=== PATIENT | male | born 2000 | race Two or more races ===

== ENCOUNTER 2020-02-06 15:08 | Emergency (ER) | payer MEDICAID ==
[~2020-02-06] VITALS: Ht 172.7 cm; Wt 113.4 kg
--- NOTE | 2020-02-06 15:15 | NUR ---
ED Nurse Note: Patient JUNE from home c/o 01/06, non-radiating right shoulder pain and numbness x 1 week. Patient states he "feels scared he will stop breathing and wanted to get checked". 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 No s/s of acute distress, denies shortness of breath.
--- NOTE | 2020-02-06 15:17 | Emergency Room Report ---
History of Present Illness General Chief Complaint: Pain Source: Patient Present Illness HPI Disclaimer: Please note that this report is being documented using DRAGON technology. This can lead to erroneous entry secondary to incorrect interpretation by the dictating instrument. HPI: 19-year-old male presents with right arm pain. He states it has been present for the past week also feeling of something stuck in his throat and feeling mildly anxious. Intermittent numbness in the right arm. Denies any injury. No other complaints at this time. 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 Patient History Reviewed Nursing Documentation: PMH: Agreed; PSxH: Agreed Nursing Documentation-PMH Past Medical History: No Stated History Review of Systems All Other Systems: negative except mentioned in HPI Physical Exam Vital Signs Date Time Temp Pulse Resp B/P (MAP) Pulse Ox O2 Delivery O2 Flow Rate FiO2 02/06/20 15:05 97.7 110 16 164/74 (104) 99 Room Air Sp02 EP Interpretation: reviewed, normal General Appearance: well appearing, no apparent distress Head: normocephalic, atraumatic Eyes: bilateral eye PERRL, bilateral eye EOMI ENT: hearing grossly normal, moist mucus membranes Neck: full range of motion, supple Respiratory: lungs clear, normal breath sounds, no rhonchi, no respiratory distress, no retraction, no wheezing, other - Chest wall nontender to palpation Cardiovascular #1: normal peripheral pulses, regular rate, rhythm, no murmur Gastrointestinal: non tender, soft, non-distended, no guarding Musculoskeletal: other - Right arm normal inspection 2+ pulses no deformity nontender Neurologic: alert, oriented x3, no focal defects Psychiatric: anxious Skin: normal color, warm/dry Medical Decision Making Diagnostic Impression: Primary Impression: Right arm pain ER Course MDM: Differential included but not limited to anxiety, muscle strain, costochondritis, acid reflux, less likely pneumonia ACS PE or other emergent pathology Clinical course-Patient's vital signs were stable. He was in no acute distress. EKG had no ischemic changes. Exam was normal. Chest x-ray showed no acute pathology. Suspect most likely anxiety versus musculoskeletal etiology. Will prescribe analgesics and have patient follow-up with PMD. Given return precautions. Regarding patient's hypertension I did recommend follow-up with his PCP for recheck. EKG Diagnostic Results Rate: normal Rhythm: NSR, other - Arrhythmia ST Segments: no acute changes Rhythm Strip Diag. Results EP Interpretation: yes Rate: 71 Rhythm: NSR, no PVC's Chest X-Ray Diagnostic Results Chest X-Ray Diagnostic Results : Chest X-Ray Ordered: Yes # of Views/Limited/Complete: 1 View Indication: Shortness of Breath EP Interpretation: Yes Interpretation: no consolidation, no effusion, no pneumothorax, no acute cardiopulmonary disease Impression: No acute disease Electronically Signed by: Nestor Estrada MD Last Vital Signs Date Time Temp Pulse Resp B/P (MAP) Pulse Ox O2 Delivery O2 Flow Rate FiO2 02/06/20 15:05 97.7 110 16 164/74 (104) 99 Room Air Disposition: HOME, SELF-CARE Condition: Stable Scripts Ibuprofen* (MOTRIN*) 600 Mg Tablet 600 MG ORAL Q6H PRN for For Pain, #30 TAB 0 Refills Prov: Nestor Estrada M.D. 02/06/20 Nestor Estrada M.D. Feb 06, 2020 15:17
[2020-02-06 15:18] VITALS: BP 164/74
--- NOTE | 2020-02-06 15:21 | NUR ---
ED Nurse Note: Xray at bedside
--- NOTE | 2020-02-06 15:44 | Diagnostic Imaging Report ---
EXAM: XR Chest, 1 View CLINICAL HISTORY: CP TECHNIQUE: Frontal view of the chest. COMPARISON: No relevant prior studies available. FINDINGS: Lungs: Unremarkable. No consolidation. Pleural space: Unremarkable. No pneumothorax. Heart: Unremarkable. No cardiomegaly. Mediastinum: Unremarkable. Bones/joints: Unremarkable. IMPRESSION: No acute findings in the chest.
[2020-02-06] MEDS ORDERED: LORazepam 0.5mg tab ORAL ONE (15:45)
[2020-02-06 16:25] VITALS: BP 158/72
[2020-02-06] MEDS ORDERED: IBUPROFEN600 M1 ORAL (16:25)
--- NOTE | 2020-02-06 16:25 | NUR ---
ER DISCHARGE NOTE: Patient is cleared to be discharged per ERMD, pt is aox4, on room air, with stable vital signs. pt was given dc and prescription instructions, pt was able to verbalize understanding, pt id band removed. pt is able to ambulate with steady gait. pt took all belongings.
[2020-02-07] MEDS ORDERED: ONDANSETRON ODT4 MG BC (22:38)
[2020-02-07] MEDS ORDERED: SIMETHICONE180 MG PO (22:38)
== END 2020-02-06 16:25 | disposition home or self-care (01) ==
LOC: EDBD 15:08 → EMR 15:26
DX: M79.601 Pain in right arm (principal); R20.0 Anesthesia of skin; I49.9 Cardiac arrhythmia, unspecified
CPT/HCPCS: 71045; 93005; Z7502; 99283

== ENCOUNTER 2020-02-07 19:45 | Emergency (ER) | payer MEDICAID ==
[~2020-02-07] VITALS: Ht 175.3 cm; Wt 108.9 kg
[~2020-02-07 19:45] MED LIST: IBUPROFEN600 M1 ORAL
[2020-02-07 20:40] VITALS: BP 160/97
[2020-02-07 21:53] LABS: APPEARANCE,URINE CLEAR; BILIRUBIN, URINE NEGATIVE (NEGATIVE); COLOR,URINE PALE YELLOW; EOSINOPHILS % (AUTO) 1.3 % (0.0-3.0); GLUCOSE, URINE (UA) NEGATIVE (NEGATIVE); HEMATOCRIT 46.3 % (42.0-52.0); HEMOGLOBIN 15.2 G/DL (14.2-18.0); KETONES,URINE 3+ (NEGATIVE); LEUKOCYTE ESTERASE ,URINE NEGATIVE (NEGATIVE); LYMPHOCYTES % (AUTO) 29.3 % (20.0-45.0); MEAN CORPUSCULAR VOLUME 82 FL (80-99); MONOCYTES % (AUTO) 7.6 % (1.0-10.0); NEUTROPHILS % (AUTO) 60.9 % (45.0-75.0); NITRITE,URINE NEGATIVE (NEGATIVE); PH,URINE 6 (4.5-8.0); PLATELET COUNT 369 K/UL (150-450); PROTEIN,URINE NEGATIVE (NEGATIVE); RED BLOOD COUNT 5.66 M/UL (4.70-6.10); RED CELL DISTRIBUTION WIDTH 13.1 % (11.6-14.8); UROBILINOGEN,URINE NORMAL MG/DL (0.0-1.0); WHITE BLOOD COUNT 12.4 K/UL (4.8-10.8)
[2020-02-07 22:07] LABS: ANION GAP 14 mmol/L (5-15); BLOOD UREA NITROGEN 14 mg/dL (7-18); CALCIUM 9.5 MG/DL (8.5-10.1); CARBON DIOXIDE 21 MMOL/L (21-32); CHLORIDE 100 MMOL/L (98-107); CREATININE 1.3 MG/DL (0.55-1.30); POTASSIUM 3.7 MMOL/L (3.5-5.1); SODIUM 135 MMOL/L (136-145)
[2020-02-07 22:11] LABS: ALANINE AMINOTRANSFERASE 30 U/L (12-78); ALBUMIN 4.4 G/DL (3.4-5.0); ALKALINE PHOSPHATASE 95 U/L (46-116); ASPARTATE AMINO TRANSFERASE 19 U/L (15-37); BILIRUBIN,TOTAL 0.4 MG/DL (0.2-1.0)
[2020-02-07] MEDS ORDERED: SIMETHICONE180 MG PO (22:38)
[2020-02-07] MEDS ORDERED: ONDANSETRON ODT4 MG BC (22:38)
--- NOTE | 2020-02-07 22:38 | Emergency Room Report ---
History of Present Illness General Chief Complaint: Abdominal Pain Source: Patient Present Illness HPI 19-year-old has medical history of hypertension presents with multiple symptoms. First complaint is abd pain located diffusely across abdomen that began 7 days ago. Patient is unable to pinpoint 1 location but points along his periumbilical region. States that it is associated with nausea and nonbloody diarrhea. He was able to eat this morning but has less of an appetite than usual. Denies sick contacts, recent travel, or antibiotic use. He denies dysuria, hematuria, melena, hematochezia, penile discharge/pain, testicular/ scrotal pain. Patient also states that he has been having myalgias and sore throat. Denies cough or fever, hot potato voice, stridor, drooling, dysphonia. The patient's symptoms were gradual onset, severity was moderate, duration since 7-8 days. Past medical history: HTN Past surgical history: Denies Smoking: Denies Alcohol use: Denies Drug use: Denies Review of systems: CONST: No fevers or chills, No night sweats PULMONARY: No productive cough, No shortness of breath CARDIAC: No chest pain, No palpitations GI: No vomiting, No diarrhea , No melena_or_BRBPR : No dysuria, No hematuria, No discharge NEURO: No new_focal_weakness_or_numbness, No confusion, No vision changes 14 point Review of Systems is otherwise negative except per HPI Physical Exam: GENERAL: Awake_alert_ nontoxic, no acute distress Spo2 99% on RA -normal EYES: Extraocular muscles are intact. Conjunctivae clear. Lids without swelling ENT: External nose and ear normal_in_appearance. Oropharynx clear. Head_ atraumatic, Moist_oral_mucosa NECK: No JVD. No meningismus. No thyromegaly. Supple. Trachea midline No stridor, no drooling, no dysphonia. No trismus. RESP: Normal respiratory effort. Symmetric rise. No stridor. Clear_to_ auscultation_No_rales_No_wheezes CARDIAC: Regular rate and regular rhythm on_auscultation No_significant pedal edema. ABDOMEN: Soft. Nondistended. Nontender_No_rebound_or_guarding. Negative Rovsing sign. Negative obturator sign. Negative Crane sign MSK: Normal muscle tone, without rigidity. Extremities without asymmetric deformity or swelling. SKIN: Warm and dry. No visible cyanosis or pallor NEUROLOGIC: Alert, oriented x3. Motor_and_sensation_grossly_intact. No truncal ataxia. Gait_normal Psych: Normal mood and affect, normal judgment and insight - COORDINATION OF CARE Case was discussed with: Patient Any labs and imaging that were ordered were interpreted as part of the medical decision making: Medical Decision Making/Plan: Differential diagnosis includes cholecystitis, choledocholithiasis, hepatitis, small bowel obstruction,pancreatitis, atypical appendicitis, gastroparesis, gastritis, peptic ulcer disease, among others. Patient is well appearing with stable vital signs. Abdominal exam is non peritoneal with no guarding or rebound. No signs of deep space neck infection. Labs show non specific leukocytosis.UA shows + ketone without uti. Over the course of their emergency department stay, serial abdominal exams were performed and reassuring without any peritoneal signs. The patients symptoms significantly improved, exam upon discharge revealed a benign abdomen, and tolerating oral fluids. The patient appears stable for discharge to follow up with their primary medical doctor in 12-24hr, and understand to return to the ED immediately if symptoms change or worsen. Doubt appendicitis at this time given he is afebrile and able to tolerate PO. Symptoms can be explained by viral syndrome/enteritis. No acute indication for abx or admission at this time. Will DC with zofran and simethicone. Recommend increased hydration. Allergies: Coded Allergies: No Known Allergies (Unverified , 02/06/20) COVID-19 Screening Contact w/high risk pt: No Experienced COVID-19 symptoms?: No COVID-19 Testing performed SECURITY OPERATIONS SPECIALIST: No Nursing Documentation-PMH Hx Hypertension: Yes Physical Exam Vital Signs Date Time Temp Pulse Resp B/P (MAP) Pulse Ox O2 Delivery O2 Flow Rate FiO2 02/07/20 19:49 98.4 76 16 160/97 (118) 99 Room Air Sp02 EP Interpretation: reviewed, normal Medical Decision Making Diagnostic Impression: Primary Impression: Viral syndrome Additional Impressions: Abdominal pain Nausea Diarrhea Chest X-Ray Diagnostic Results Chest X-Ray Diagnostic Results : CARLO Salguero Chest X-Ray: Views: [ 1 ] view(s) Indication: sore throat Findings: Normal heart size. Mediastinum normal. No infiltrate. Impression: no Acute disease The X-ray(s) were independently viewed and interpreted contemporaneously Electronically signed by Mikaela mirza DO Reevaluation Time: 22:36 Last Vital Signs Date Time Temp Pulse Resp B/P (MAP) Pulse Ox O2 Delivery O2 Flow Rate FiO2 02/07/20 20:40 98.4 76 16 160/97 99 Room Air Status: improved Disposition: HOME, SELF-CARE Admit Decision Time: 22:36 Condition: Stable Scripts Simethicone (SIMETHICONE) 180 Mg Capsule 180 MG PO DAILY for bloating for 14 Days, #14 CAP Prov: Mikaela Richmond D.O. 02/07/20 Ondansetron Odt* (ZOFRAN ODT*) 4 Mg Tab.rapdis 4 MG BC EVERY 8 HOURS, #10 TAB 0 Refills Prov: Mikaela Richmond D.O. 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 Follow-up with your doctor sooner if your condition requires a more timely clinical reevaluation. Return to the emergency department immediately if you feel that your condition is worsening or if you have any new or concerning symptoms. Review your discharge instructions and take any prescriptions given as instructed. The evaluation of your abdominal pain today has not led to a clear diagnosis. Your physician still has concerns regarding your condition. Although dangerous conditions such as appendicitis do not appear likely at this time point, there is always some risk, especially if it is early (just beginning). Many conditions may not be discovered on initial testing. These should become more apparent with a reevaluation within 12-24 hours. The earlier these conditions are discovered and treated, the more effective the treatment can be. Therefore, you must come back to the ER and be reevaluated. Your signature below signifies your understanding of these concerns and your willingness to return within 12- 24 hours for a reevaluation. As always, if you feel your condition is getting worse at any time before 12-24 hours, please return immediately. You were seen in the emergency room for abdominal pain. Your exam suggested there was no evidence for an emergent condition at this time. Return to the ER for: fevers, worsening pain, bloody stool / diarrhea, vomiting , or any other concerning symptoms. Remember that examination and testing performed in the emergency department is not a comprehensive evaluation for all medical conditions and does not replace the need to follow up with a primary care doctor. In the emergency department, we are only able to to evaluate your symptoms in their current condition, but symptoms may change or worsen. Although you were felt safe to be discharged today, if your symptoms persist or change you need to be reevaluated by your regular / primary doctor as soon as possible- if you are unable to make an appointment with your regular doctor, please come back to this ER to be reevaluated. Mikaela Richmond D.O. Feb 07, 2020 22:38
[2020-02-07 22:45] VITALS: BP 138/95
--- NOTE | 2020-02-08 15:32 | Diagnostic Imaging Report ---
Indication: Cough Technique: One view of the chest Comparison: 02/06/2020 Findings: Lungs and pleural spaces are clear. Heart size is normal. No significant change Impression: No acute process
== END 2020-02-07 22:45 | disposition home or self-care (01) ==
LOC: EMR 20:15
DX: B34.9 Viral infection, unspecified (principal); R10.9 Unspecified abdominal pain; R11.0 Nausea; R19.7 Diarrhea, unspecified; I10 Essential (primary) hypertension; D72.829 Elevated white blood cell count, unspecified
CPT/HCPCS: 36415; 71045; 80053; 81003; 83690; 85025; U0002; Z7502; 99283

== ENCOUNTER 2020-03-09 14:46 | Emergency (ER) | payer MEDICAID ==
[~2020-03-09] VITALS: Ht 170.2 cm; Wt 106.6 kg
[~2020-03-09 14:46] MED LIST changes: +OMEPRAZOLE20 M3 ORAL; +ONDANSETRON ODT4 MG BC; +SIMETHICONE180 MG PO; +ZOFRAN4 M1 ORAL
[2020-03-09 14:55] VITALS: BP 131/82
--- NOTE | 2020-03-09 15:13 | Emergency Room Report ---
History of Present Illness General Chief Complaint: Chest Pain Source: Patient Present Illness HPI 20-year-old male with past medical history of hypertension, marijuana use presents to the ED with multiple complaints. First complaint is left-sided chest pain that is been ongoing intermittently for the past 2 weeks. He states that it is reproducible on palpation. 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 States that intermittently he experiences some shortness of breath. Denies history of blood clot, thrombosis, prolonged immobilization, surgery, trauma, hemoptysis, or other symptoms. Denies family history of lung cancer or early cardiac . Second complaint is for recurrent right upper quadrant abdominal pain. He states that it is intermittently associated with diarrhea. He followed up with his PMD 2 weeks ago after discharge from the emergency department and was checked for H. pylori and found to be negative. His primary care doctor ran blood labs which were all within normal limits. He was put on a liquid diet which has been helping with his diarrhea. His last bowel movement was today 2 hours prior to arrival. Last p.o. intake was 2 hours prior to arrival. Appetite has been normal. The patient's symptoms were gradual onset, severity was moderate, duration since 14 days or more Quality: aching Past medical history: Hypertension, marijuana use Past surgical history: Denies Smoking: Cigarettes Alcohol use: Denies Drug use: Marijuana, last used 2 weeks ago Review of systems: CONST: No fevers or chills, No night sweats PULMONARY: No productive cough, No shortness of breath CARDIAC: ++ chest pain, No palpitations GI: No vomiting, ++ diarrhea , No melena_or_BRBPR : No dysuria, No hematuria, No discharge NEURO: No new_focal_weakness_or_numbness, No confusion, No vision changes 14 point Review of Systems is otherwise negative except per HPI Physical Exam: GENERAL: Awake_alert_ nontoxic, no acute distress Spo2 100% on RA -normal EYES: Extraocular muscles are intact. Conjunctivae clear. Lids without swelling ENT: External nose and ear normal_in_appearance. Oropharynx clear. Head_ atraumatic, Moist_oral_mucosa NECK: No JVD. No meningismus. No thyromegaly. Supple. Trachea midline RESP: Normal respiratory effort. Symmetric rise. No stridor. Clear_to_ auscultation_No_rales_No_wheezes CARDIAC: Regular rate and regular rhytm. No_significant pedal edema. Reproducible anterior chest wall pain with palpation. Tenderness along the left costochondral junction. ABDOMEN: Soft. Nondistended. Nontender_No_rebound_or_guarding. Negative Rovsing. Negative Crane's. Negative obturator. No CVA tenderness to palpation MSK: Normal muscle tone, without rigidity. Extremities without asymmetric deformity or swelling. SKIN: Warm and dry. No visible cyanosis or pallor NEUROLOGIC: Alert, oriented x3. Motor_and_sensation_grossly_intact. No truncal ataxia. Gait_normal Psych: Normal mood and affect, normal judgment and insight - COORDINATION OF CARE Case was discussed with: Patient Any labs and imaging that were ordered were interpreted as part of the medical decision making: I did review previous ED visit, labs, UDS, and CT scan. Patient was found to be UDS positive for marijuana. CT scan of the abdomen and pelvis showed numerous minimally prominent mesenteric lymph nodes that could be reactive versus mesenteric adenitis. Otherwise no signs for appendicitis. Abdomen is soft and nontender today. Patient is afebrile with normal appetite. I have low suspicion for acute surgical pathology at this time including acute appendicitis or acute cholecystitis. Medical Decision Making/Plan: Differential includes acute coronary syndrome, pulmonary embolism, pneumonia, aortic dissection, pericardial tamponade, musculoskeletal chest pain, among others. Patient is nontoxic and well-appearing with stable vitals signs. The patients pain appears consistent with a musculoskeletal origin. Pain is reproducible with palpation. EKG shows NSR without any obvious signs of ischemia. No significant right heart strain. CXR shows no evidence of pneumothorax, pneumonia, or significant pleural effusion. Troponin negative. Dimer negative. Doubt PE. No leukocytosis to suggest infectious process. ED intervention included toradol and zofran with full relief of symptoms. Acute coronary syndrome is unlikely and the patient is low risk, pain is atypical, nonexertional, and troponin is negative with over 6 hrs of symptoms. The pain is not classic for pericarditis or myocarditis, and the patient has no significant risk factors for a pericardial effusion and has stable vitals signs , unlikely to have tamponade. Pain is not likely to be pulmonary embolism (PERC negative), and no significant PE risk factors. The patient has no significant risk factors for aortic dissection, no history of connective tissue disorder, and the patients pain is not severe, radiating to the back, or tearing in nature. They have normal bilateral radial and pedal pulses. Patient observed for several hours in the ED, ECG with no emergent findings, patient discharged with no dangerous vital signs, patient instructed to follow up with PMD in the next 1-2 days to be referred for a treadmill stress test within the next 48-72 hours. HEART score < 4, which indicates low risk, so the patient can be safely discharged with the understanding that they need to make an appointment with a primary care doctor to be referred for a stress test within the next 48-72 hours , or if they cannot arrange that they are to return to the ED, or sooner than that if they have any changing, persistent, or worsening symptoms. In the HEART studies, the patients in the low risk group were discharged and found to have a 0.9-1.7% chance of having a major adverse cardiac event (defined as revascularization, myocardial infarction, or all-cause mortality) within 6 weeks. 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 COVID-19 Screening: Negative COVID-19 COVID-19 Testing Source: nasal Nursing Documentation-[facility] Past Medical History: No History, Except For Hx Hypertension: Yes Physical Exam Vital Signs Date Time Temp Pulse Resp B/P (MAP) Pulse Ox O2 Delivery O2 Flow Rate FiO2 03/09/20 14:51 98.8 57 17 131/82 (98) 98 Room Air Sp02 EP Interpretation: reviewed, normal Medical Decision Making Diagnostic Impression: Primary Impression: Chest wall pain Additional Impressions: Chronic abdominal pain Hypertension Marijuana use EKG Diagnostic Results CARLO Scribe Text 12-lead EKG (interpreted by me) Time: 1548 Indication: Rhythm analysis Tracing visualized and Interpreted by me. Rhythm: Normal sinus rhythm Rate: 60 bpm QTc: 422 Morphology: No_significant_ST_elevations_or_depressions, No STEMI Impression: Normal_sinus_rhythm_without_significant_abnormality Rhythm Strip Diag. Results Rhythm Strip Time: 15:12 EP Interpretation: yes Rate: 65 Rhythm: NSR, no PVC's, no ectopy Chest X-Ray Diagnostic Results Chest X-Ray Diagnostic Results : CARLO Roblero Text Chest X-Ray: Views: 1 view(s) Indication: Chest pain Findings: Normal heart size. Mediastinum normal. No infiltrate. Impression: NAD The X-ray(s) were independently viewed and interpreted contemporaneously Electronically signed by Mikaela mirza DO Reevaluation Time: 15:56 Last Vital Signs Date Time Temp Pulse Resp B/P (MAP) Pulse Ox O2 Delivery O2 Flow Rate FiO2 03/09/20 14:51 98.8 57 17 131/82 (98) 98 Room Air Status: improved Disposition: HOME, SELF-CARE Admit Decision Time: 15:56 Condition: Stable Scripts Ondansetron Odt* (ZOFRAN ODT*) 4 Mg Tab.rapdis 4 MG BC EVERY 8 HOURS, #10 TAB 0 Refills Prov: Mikaela Richmond D.O. 03/09/20 Naproxen* (NAPROXEN*) 500 Mg Tablet.dr 500 MG ORAL TWICE A DAY for 20 Days, #40 TAB Prov: Mikaela Richmond D.O. 03/09/20 Patient Instructions: Abdominal Pain, Adult, [id number], Nonspecific Chest Pain Additional Instructions: Instructions for patient/digital asset coordinator: Follow up with your physician in 1-2 days for repeat abdominal examination. Because of the fact that your abdominal pain is chronic, you will need referral to a specialist at this point Follow-up with your doctor sooner if your condition requires a more timely clinical reevaluation. Return to the emergency department immediately if you feel that your condition is worsening or if you have any new or concerning symptoms. Review your discharge instructions and take any prescriptions given as instructed. Mikaela Richmond D.O. Mar 09, 2020 15:12
[2020-03-09 15:24] LABS: BASOPHILS % (AUTO) 1.4 % (0.0-2.0); HEMATOCRIT 40.5 % (42.0-52.0); HEMOGLOBIN 13.3 G/DL (14.2-18.0); LYMPHOCYTES % (AUTO) 22.2 % (20.0-45.0); MEAN CORPUSCULAR VOLUME 82 FL (80-99); MONOCYTES % (AUTO) 8.7 % (1.0-10.0); NEUTROPHILS % (AUTO) 66.7 % (45.0-75.0); PLATELET COUNT 312 K/UL (150-450); RED BLOOD COUNT 4.96 M/UL (4.70-6.10); RED CELL DISTRIBUTION WIDTH 12.8 % (11.6-14.8); WHITE BLOOD COUNT 7.5 K/UL (4.8-10.8)
[2020-03-09 15:38] LABS: INR 1.1 (0.9-1.1); PARTIAL THROMBOPLASTIN TIME 30 SEC (23-33)
[2020-03-09 15:39] LABS: ANION GAP 10 mmol/L (5-15); BLOOD UREA NITROGEN 16 mg/dL (7-18); CALCIUM 9.5 MG/DL (8.5-10.1); CARBON DIOXIDE 26 MMOL/L (21-32); CHLORIDE 103 MMOL/L (98-107); CREATININE 1.1 MG/DL (0.55-1.30); POTASSIUM 3.8 MMOL/L (3.5-5.1); SODIUM 139 MMOL/L (136-145)
[2020-03-09 15:44] LABS: ALANINE AMINOTRANSFERASE 32 U/L (12-78); ALKALINE PHOSPHATASE 86 U/L (46-116); ASPARTATE AMINO TRANSFERASE 14 U/L (15-37); BILIRUBIN,TOTAL 0.3 MG/DL (0.2-1.0)
[2020-03-09] MEDS ORDERED: Ketorolac 30mg Inj IV ONE (15:45)
[2020-03-09 15:53] LABS: APPEARANCE,URINE CLEAR; BILIRUBIN, URINE NEGATIVE (NEGATIVE); COLOR,URINE PALE YELLOW; GLUCOSE, URINE (UA) NEGATIVE (NEGATIVE); KETONES,URINE NEGATIVE (NEGATIVE); LEUKOCYTE ESTERASE ,URINE NEGATIVE (NEGATIVE); NITRITE,URINE NEGATIVE (NEGATIVE); PH,URINE 7 (4.5-8.0); PROTEIN,URINE NEGATIVE (NEGATIVE); UROBILINOGEN,URINE NORMAL MG/DL (0.0-1.0)
[2020-03-09] MEDS ORDERED: NAPROXEN500 M1 ORAL (15:57)
[2020-03-09] MEDS ORDERED: ONDANSETRON ODT4 MG BC (15:57)
--- NOTE | 2020-03-09 15:58 | Diagnostic Imaging Report ---
Indication: Chest pain Technique: One view of the chest Comparison: 02/07/2020 Findings: Lungs and pleural spaces are clear. Heart size is normal. No significant change Impression: No acute process
[2020-03-09 16:06] VITALS: BP 140/80
== END 2020-03-09 16:06 | disposition home or self-care (01) ==
LOC: EMR 15:38
DX: R07.89 Other chest pain (principal); I10 Essential (primary) hypertension; G89.29 Other chronic pain; R10.11 Right upper quadrant pain; F12.90 Cannabis use, unspecified, uncomplicated
CPT/HCPCS: 36415; 71045; 80053; 80307; 81003; 83690; 84484; 85025; 85379; 85610; 85730; 93005; 96374; 96375; J1885; J2405; Z7502; 99284

== ENCOUNTER 2020-03-21 21:04 | Emergency (ER) | payer MEDICAID ==
[~2020-03-21] VITALS: Ht 170.2 cm; Wt 106.6 kg
[~2020-03-21 21:04] MED LIST changes: +NAPROXEN500 M1 ORAL
--- NOTE | 2020-03-21 21:25 | NUR ---
ED Nurse Note: Recieved pt walk in from home with c/o chest wall pain bilat x 1 month, denies cough or fevers but does c/o sorethroat x 3 days, pt started taking oral antibiotics from mom, denies any other s/s or discomforts.
[2020-03-21 22:10] VITALS: BP 126/81
[2020-03-21] MEDS ORDERED: AMOXICILLIN500 MG ORAL (22:10)
[2020-03-21] MEDS ORDERED: ROBAXIN-750750 MG PO (22:10)
[2020-03-21] MEDS ORDERED: TYLENOL EXTRA500 MG ORAL (22:10)
[2020-03-21 22:15] VITALS: BP 126/81
--- NOTE | 2020-03-21 22:15 | NUR ---
ER DISCHARGE NOTE: Patient is cleared to be discharged per ERMD, pt is aox4, on room air, with stable vital signs. pt was given dc and prescription instructions, pt was able to verbalize understanding, pt id band removed without complications. pt is able to ambulate with steady gait. pt took all belongings.
--- NOTE | 2020-03-21 23:01 | Emergency Room Report ---
History of Present Illness General Chief Complaint: Sore Throat Present Illness Allergies: Coded Allergies: No Known Allergies (Unverified , 02/06/20) COVID-19 Screening Contact w/high risk pt: No Experienced COVID-19 symptoms?: No COVID-19 Testing performed ROUTING EQUIPMENT TENDER: No Nursing Documentation-PMH Hx Hypertension: Yes Physical Exam Vital Signs Date Time Temp Pulse Resp B/P (MAP) Pulse Ox O2 Delivery O2 Flow Rate FiO2 03/21/20 21:09 97.2 82 18 130/85 (100) 97 Room Air Medical Decision Making Diagnostic Impression: Primary Impression: Chest wall pain Additional Impression: Pharyngitis EKG Diagnostic Results Rate: normal Rhythm: NSR ST Segments: no acute changes ASA given to the pt in ED: No Rhythm Strip Diag. Results EP Interpretation: yes Rhythm: NSR, no PVC's, no ectopy Last Vital Signs Date Time Temp Pulse Resp B/P (MAP) Pulse Ox O2 Delivery O2 Flow Rate FiO2 03/21/20 22:15 98.7 79 16 126/81 99 Room Air Disposition: HOME, SELF-CARE Condition: Stable Scripts Methocarbamol* (ROBAXIN-750*) 750 Mg Tablet 750 MG PO TID, #21 TAB 0 Refills Prov: Lanre Valerio MD 03/21/20 Acetaminophen* (TYLENOL EXTRA STRENGTH*) 500 Mg Tablet 500 MG ORAL Q8H PRN for Prn Headache/Temp > 101, #30 TAB 0 Refills Prov: Lanre Valerio MD 03/21/20 Amoxicillin* (AMOXIL*) 500 Mg Capsule 500 MG ORAL THREE TIMES A DAY, #21 CAP Prov: Lanre Valerio MD 03/21/20 Patient Instructions: Chest Wall Pain, [id number] Lanre Valerio MD Mar 21, 2020 23:01
--- NOTE | 2020-03-22 10:44 | Diagnostic Imaging Report ---
Procedure: XRAY Chest 1v Reason for study: Chest pain. Comparison films: 03/09/2020. FINDINGS: A single one view chest is obtained. Vascularity is normal. The lung hewitt are clear bilaterally. Cardiac and mediastinal silhouette are within normal limits. CP angles are sharp. The bony thorax appear unremarkable. IMPRESSION: UNREMARKABLE ONE VIEW CHEST.
--- NOTE | 2020-03-24 14:45 | Cardiology Report ---
APPROVED REPORT EKG Measurement Heart [id number] <Conclusion> Normal sinus rhythm Moderate voltage criteria for LVH, may be normal variant Borderline ECG
== END 2020-03-21 22:15 | disposition home or self-care (01) ==
LOC: EMR 21:25
DX: J02.9 Acute pharyngitis, unspecified (principal); R07.9 Chest pain, unspecified; I10 Essential (primary) hypertension
CPT/HCPCS: 71045; 93005; Z7502; 99283

== ENCOUNTER 2020-07-27 12:31 | Emergency (ER) | payer MEDICAID ==
[~2020-07-27] VITALS: Ht 172.7 cm; Wt 104.3 kg
[~2020-07-27 12:31] MED LIST changes: +AMOXICILLIN500 MG ORAL; +ROBAXIN-750750 MG PO; +TYLENOL EXTRA500 MG ORAL
--- NOTE | 2020-07-27 12:48 | Emergency Room Report ---
History of Present Illness General Chief Complaint: Chest Pain Source: Patient Present Illness HPI Disclaimer: Please note that this report is being documented using DRAGON technology. This can lead to erroneous entry secondary to incorrect interpretation by the dictating instrument. HPI: 20-year-old male presents for evaluation of chest pain. He reports over the past 5 months he has had intermittent and sudden onset sharp pain over the left chest. Not associated with exercise or any other obvious triggers. Sometimes positional other times not. Today was accompanied with shortness of breath while at rest. It resolved. He arrives chest pain-free. He was evaluated for similar complaints in this emergency department before with negative work-ups and is being referred by his PMD to a bomb squad officer but has not yet seen them. Patient smokes and occasionally drinks. Denies history of asthma. Denies significant cough, congestion, sore throat, fever, chills, URI symptoms, nausea, vomiting, diarrhea, weakness, diaphoresis or other symptoms at this time. 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 EOMI. Chest Wall: Stable. No reproducible tenderness. No crepitus. Cardiovascular: RRR. S1 and S2 normal. No murmur appreciated Resp: Normal work of breathing. No cough, wheezing or crackles appreciated Abdomen: Abdomen is soft, nondistended. Nontender Skin: Intact. No abrasions, laceration or rash over the exposed skin MSK: Normal tone and bulk. Moving all extremities. No obvious deformity. No lower extremity edema. Neuro: Awake and alert. Mentating appropriately. Medical Decision Making Diagnostic Impression: Primary Impression: Chest pain ER Course Is a 20-year-old male presenting for evaluation of chest pain. Differential includes was not limited to palpitations, ACS, muscle spasm, chest wall pain, pneumothorax, pneumonia, bronchospasm, GERD among others. He is well-appearing arrives with stable vital signs and chest pain-free. Patient is PERC negative. EKG is nonischemic. Chest x-ray unremarkable and no infiltrates or pneumothorax. Labs including troponin returned within normal limits. This is an ongoing issue for the past 5 months and patient is stable to follow-up with his outpatient bomb squad officer. He is well-appearing here with stable vital signs. Instructed him to return new or worsening symptoms. He understands and agrees with this treatment plan. Laboratory Tests Test 07/27/20 12:53 White Blood Count 8.1 K/UL (4.8-10.8) Red Blood Count 5.83 M/UL (4.70-6.10) Hemoglobin 14.8 G/DL (14.2-18.0) Hematocrit 47.6 % (42.0-52.0) Mean Corpuscular Volume 82 FL (80-99) Mean Corpuscular Hemoglobin 25.3 PG (27.0-31.0) L Mean Corpuscular Hemoglobin Concent 31.1 G/DL (32.0-36.0) L Red Cell Distribution Width 13.3 % (11.6-14.8) Platelet Count 361 K/UL (150-450) Mean Platelet Volume 7.5 FL (6.5-10.1) Neutrophils (%) (Auto) 69.6 % (45.0-75.0) Lymphocytes (%) (Auto) 19.9 % (20.0-45.0) L Monocytes (%) (Auto) 8.6 % (1.0-10.0) Eosinophils (%) (Auto) 0.6 % (0.0-3.0) Basophils (%) (Auto) 1.3 % (0.0-2.0) Sodium Level 141 MMOL/L (136-145) Potassium Level 3.8 MMOL/L (3.5-5.1) Chloride Level 107 MMOL/L (98-107) Carbon Dioxide Level 25 MMOL/L (21-32) Blood Urea Nitrogen 19 mg/dL (7-18) H Creatinine 1.2 MG/DL (0.55-1.30) Estimated Glomerular Filtration Rate > 60 mL/min (>60) Glucose Level 127 MG/DL (74-106) H Calcium Level 9.2 MG/DL (8.5-10.1) Total Bilirubin 0.3 MG/DL (0.2-1.0) Aspartate Amino Transferase (AST) 25 U/L (15-37) Alanine Aminotransferase (ALT) 27 U/L (12-78) Alkaline Phosphatase 137 U/L (46-116) H Troponin I 0.000 ng/mL (0.000-0.056) Total Protein 8.2 G/DL (6.4-8.2) Albumin 3.9 G/DL (3.4-5.0) Globulin 4.3 g/dL Albumin/Globulin Ratio 0.9 (1.0-2.7) L EKG Diagnostic Results Troponin ordered: Yes When was troponin ordered?: Jul 27, 2020 EKG Time: 12:46 Rate: normal Rhythm: NSR ST Segments: no acute changes Other Impression Sinus rhythm, left axis, normal intervals, no ST segment elevation Rhythm Strip Diag. Results Rhythm Strip Time: 12:46 EP Interpretation: yes Rate: 70s Rhythm: NSR, no PVC's, no ectopy Chest X-Ray Diagnostic Results Chest X-Ray Diagnostic Results : Chest X-Ray Ordered: Yes # of Views/Limited/Complete: 1 View Indication: Chest Pain EP Interpretation: Yes Interpretation: no consolidation, no effusion, no pneumothorax, no acute cardiopulmonary disease Impression: No acute disease Electronically Signed by: Electronically signed by Dr. Santosh Sampson MD Last Vital Signs Date Time Temp Pulse Resp B/P (MAP) Pulse Ox O2 Delivery O2 Flow Rate FiO2 07/27/20 12:36 98.2 95 17 149/87 (107) 95 Room Air Disposition: HOME, SELF-CARE Condition: Stable Santosh Sampson MD Jul 27, 2020 12:48
[2020-07-27 12:58] VITALS: BP 149/80
--- NOTE | 2020-07-27 13:07 | NUR ---
ED Nurse Note: pt ambulated to room in no noted distress. pt stated that he has had chest pain and sob x5mths. pt stated that he has been seen for the same thing and no dx. pt attached to monitor, iv/labs completed and sent. EKG and xray completed
[2020-07-27 13:20] LABS: BASOPHILS % (AUTO) 1.3 % (0.0-2.0); EOSINOPHILS % (AUTO) 0.6 % (0.0-3.0); HEMATOCRIT 47.6 % (42.0-52.0); HEMOGLOBIN 14.8 G/DL (14.2-18.0); LYMPHOCYTES % (AUTO) 19.9 % (20.0-45.0); MEAN CORPUSCULAR VOLUME 82 FL (80-99); MONOCYTES % (AUTO) 8.6 % (1.0-10.0); NEUTROPHILS % (AUTO) 69.6 % (45.0-75.0); PLATELET COUNT 361 K/UL (150-450); RED BLOOD COUNT 5.83 M/UL (4.70-6.10); RED CELL DISTRIBUTION WIDTH 13.3 % (11.6-14.8); WHITE BLOOD COUNT 8.1 K/UL (4.8-10.8)
[2020-07-27 13:33] LABS: ALANINE AMINOTRANSFERASE 27 U/L (12-78); ALBUMIN 3.9 G/DL (3.4-5.0); ALBUMIN/GLOBULIN RATIO 0.9 (1.0-2.7); ALKALINE PHOSPHATASE 137 U/L (46-116); ASPARTATE AMINO TRANSFERASE 25 U/L (15-37); BILIRUBIN,TOTAL 0.3 MG/DL (0.2-1.0); BLOOD UREA NITROGEN 19 mg/dL (7-18); CALCIUM 9.2 MG/DL (8.5-10.1); CARBON DIOXIDE 25 MMOL/L (21-32); CHLORIDE 107 MMOL/L (98-107); CREATININE 1.2 MG/DL (0.55-1.30); POTASSIUM 3.8 MMOL/L (3.5-5.1); SODIUM 141 MMOL/L (136-145)
--- NOTE | 2020-07-27 13:37 | Diagnostic Imaging Report ---
Procedure: XRAY Chest 1v Reason for study: Chest pain Comparison films: 03/21/2020. FINDINGS: A single one view chest is obtained. Vascularity is normal. The lung hewitt are clear bilaterally. Cardiac and mediastinal silhouette are within normal limits. CP angles are sharp. The bony thorax appear unremarkable. IMPRESSION: NO ACUTE CARDIOPULMONARY DISEASE.
[2020-07-27 14:42] VITALS: BP 131/72
--- NOTE | 2020-07-27 14:46 | NUR ---
ER DISCHARGE NOTE: Patient is cleared to be discharged per ERMD, pt is aox4, on room air, with stable vital signs. pt was given dc instructions, pt was able to verbalize understanding, pt id band and iv site removed without complications. pt is able to ambulate with steady gait. pt took all belongings. Encouraged pt to f/u with sales correspondence clerk.
== END 2020-07-27 14:45 | disposition home or self-care (01) ==
LOC: EMR 13:11
DX: R07.9 Chest pain, unspecified (principal); I10 Essential (primary) hypertension
CPT/HCPCS: 36415; 71045; 80053; 84484; 85025; 93005; Z7502; 99284